=== PATIENT | male | born 1950 | race Caucasian/White ===

== ENCOUNTER 2022-03-13 12:15 | Outpatient (CLI) | payer MEDICARE, SELFPAY ==
[2022-03-13 21:56] LABS: C Reactive Protein* < 0.5 mg/dL (0.5-1.0)
== END 2022-03-13 12:16 | disposition home or self-care (01) ==
PROVIDERS: PCP Physician Assistant Medical; Visit Provider Physician Assistant Surgical
DX: M24.051 Loose body in right hip (principal)
CPT/HCPCS: 83520; 86140

== ENCOUNTER 2022-03-29 08:52 | Outpatient (CLI) | payer MEDICARE, SELFPAY ==
--- NOTE | 2022-03-29 09:00 | CRLHL7_ITS ---
For Patients: As a result of the Century Cures Act, medical imaging exams and procedure reports are released immediately into your electronic medical record. You may view this report before your referring provider. If you have questions, please contact your health care provider. HISTORY: 72-year-old male. Evaluate for possible loosening of right hip replacement. TECHNIQUE: 27.3 millicuries of [id number] was injected intravenously. Three phase images of the pelvis and hips were obtained. FINDINGS: The blood flow and blood pool images demonstrate mild hyperemia over the right acetabular region. The delayed images demonstrate a right hip replacement. There is abnormally increased uptake adjacent to the right acetabular component. Uptake adjacent to the femoral component is within normal limits. 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 Dictated by Edy Wade MD @ 03/29/2022 2:57:05 PM (Electronically Signed)
== END 2022-03-29 08:53 | disposition home or self-care (01) ==
LOC: NM 08:54
PROVIDERS: PCP Physician Assistant Medical; Visit Provider Physician Assistant Surgical
DX: M25.551 Pain in right hip (principal); M24.051 Loose body in right hip
CPT/HCPCS: 78315; A9503

== ENCOUNTER 2022-05-09 10:14 | Outpatient (CLI) | payer MEDICARE, SELFPAY | END 2022-05-09 10:15 | disposition home or self-care (01) | LOC: NFLDREF 05-11 14:19 | PROVIDERS: PCP Physician Assistant Medical; Referring Provider Physician Assistant Medical; Visit Provider Physician Assistant Medical | DX: E78.2 Mixed hyperlipidemia (principal) | CPT/HCPCS: 80061 ==

== ENCOUNTER 2022-06-14 11:45 | Outpatient (RCR) | payer MEDICARE, SELFPAY ==
--- NOTE | 2022-06-06 18:06 | PT.OPE ---
PT [place] Outpatient Eval PT [facility] Outpatient Eval Start: 06/06/22 17:39 Freq: Status: Active Protocol: Document 06/06/22 17:39 HAYDEE (Rec: 06/06/22 18:01 HAYDEE Desktop) E-signed By Leonard Ramos, PT, ATC Physical Therapy Outpatient Evaluation Insurance Information Insurance Name Medicare B Medical Diagnosis M25.649 Effusion, unspecified knee Z96.651 Presence of R artificial knee joint Treating Diagnosis R knee pain R knee stiffness R knee swelling R knee bruising Referring MD Kalyan GOMEZ Subjective Subjective Reports falling down a set of stairs in his home on 05-25-22 causing the current complaints in his R knee-pain, swelling, stiffness, bruising. Very little improvement has been recognized to this point. Pain is constant, rated 6/10 which can increase to 8/10 with WB' ing activities (walking, squatting, transfers). 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 Recent x-rays were performed of the R knee and no damage to the TKA components or surrounding bone was identified. He is icing the knee and taking NSAIDs for his symptoms. He has a history of Parkinson's with frequent falls and memory difficulty. His cane that he is using on the left side was being used prior to this accident. Date of Last Physician Visit 05/29/22 Current Work Status Retired Preferred Name Michael Precautions Weight Bearing Status Full Weight Bearing Therapy Limitations/Systems Review Not Limited Objective Range of Motion L AROM 5-80 degrees flex L PROM 3-90 degrees flex Strength L and R knee FLEX and EXT 5/5, pain with L knee extension resistance R quad set 5/5, L 4/5 Swelling General mild effusion surrounding L knee with mild effusion in suprapatellar area Palpation Tender along medial joint line , lateral distal femur and proximal tibia bones. Balance & Gait Walks with an antalgic gait pattern. Other/Pertinent Objective Bruising exists on medial L knee Assessment Assessment/Impression Michael is a pleasant 72 year old man, well known in PT from previous care (joint and balance/neuro). He is frustrated with the continued discomfort and stiffness present in the L knee since his fall. Very little improvement recognized to this point, although it felt better following todays treatment. Skilled PT is recommended to address his pain, swelling, ROM deficits, gait pattern and functional limitations. His neurological challenges and Parkinsons already make mobility challenged and heightens fall risk. Compensation for the current L knee injury heightens this vulnerability. Primary Functional Limitations All transfers Walking Sleeping Plan of Care Rehabilitation Potential Good Physical Therapy Goals 1.Eliminate constant pain while lessening L knee pain at its highest to 3/10 or less. 2.Ability to lift L leg into and from car without assistance of UE's. 3.Reciprocal stair ascent and descent (using railing) x 10 steps. 4.Able to flex L knee to 90 degrees allowing ease with donning socks. Coordination/Communication With Referral Source Treatment Plan/Direct Interventions Electrical Stimulation,Gait Training,Ice/Cold/ Vasopneumatic,Joint Mobilization,Manual Therapy, Therapeutic Exercises Frequency/Duration 1-2x per week 6-12 weeks Patient Will Be Discharged From Therapy Independent w/HEP, Independently Progressing Evaluation Billing Untimed Code Treatment Minutes 30 PT Eval No Charge No Complexity Low Certification Information Initial Certification Date 06/06/22 Ending Certification Date 09/05/22 Provider Signature Shows Agreement With POC & Medical Necessity Physician Signature & Date Requested Please Sign/Date Here Physician Comment/Change : Physician NPI Number #
== END 2022-06-15 09:12 | disposition home or self-care (01) ==
PROVIDERS: PCP Physician Assistant Medical; Visit Provider Physician Assistant Surgical
DX: T14.8XXA Other injury of unspecified body region, initial encounter (principal); M25.461 Effusion, right knee; Z96.651 Presence of right artificial knee joint; M25.561 Pain in right knee; M25.661 Stiffness of right knee, not elsewhere classified; Z51.89 Encounter for other specified aftercare
CPT/HCPCS: 97032; 97110; 97140; 97161